=== PATIENT | male | born 1965 | race Caucasian/White ===

== ENCOUNTER 2017-06-07 14:43 | Inpatient (IN) | payer BC ==
--- NOTE | 2017-06-07 15:07 | ER Document Report ---
ED General - General Stated Complaint: RECHECK Time Seen by Provider: 06/07/17 15:01 Mode of Arrival: Ambulatory Information source: Patient Notes: 51-year-old male history of hypertension on lisinopril presents with complaints of low sodium recheck. Patient was noted to have a sodium of 119 this morning. Denies any fevers or chills denies any confusion admits to weakness TRAVEL OUTSIDE OF THE [place] IN LAST 30 DAYS: No - HPI Onset: Just prior to arrival Onset/Duration: Sudden Quality of pain: No pain Severity: Mild Pain Level: Denies Associated symptoms: Weakness Exacerbated by: Denies Relieved by: Denies Similar symptoms previously: Yes Recently seen / treated by doctor: Yes - Related Data Allergies/Adverse Reactions: iodine [Iodine] Allergy (Verified 12/31/12 14:30) Past Medical History - Social History Smoking Status: Never Smoker Cigarette use (# per day): No Chew tobacco use (# tins/day): No Smoking Education Provided: No Frequency of alcohol use: Occasional Family History: Reviewed & Not Pertinent - Past Medical History Cardiac Medical History: Reports: Hx Hypertension Past Surgical History: Reports: Hx Appendectomy Review of Systems - Review of Systems Notes: REVIEW OF SYSTEMS: CONSTITUTIONAL : Denies fever, chills, or sweats. Denies recent illness. EENT: Denies eye, ear, throat, or mouth pain or symptoms. Denies nasal or sinus congestion or discharge. Denies throat, tongue, or mouth swelling or difficulty swallowing. CARDIOVASCULAR: Denies chest pain. Denies palpitations or racing or irregular heart beat. Denies ankle edema. RESPIRATORY: Denies cough, cold, or chest congestion. Denies shortness of breath, difficulty breathing, or wheezing. GASTROINTESTINAL: Denies abdominal pain or distention. Denies nausea, vomiting , or diarrhea. Denies blood in vomitus, stools, or per rectum. Denies black, tarry stools. Denies constipation. GENITOURINARY: Denies difficulty urinating, painful urination, burning, frequency, blood in urine, or discharge. MUSCULOSKELETAL: Denies back or neck pain or stiffness. Denies joint pain or swelling. SKIN: Denies rash, lesions or sores. HEMATOLOGIC : Denies easy bruising or bleeding. LYMPHATIC: Denies swollen, enlarged glands. NEUROLOGICAL: Admits to weakness PSYCHIATRIC: Denies anxiety or stress. Denies depression, suicidal ideation, or homicidal ideation. ALL OTHER SYSTEMS REVIEWED AND NEGATIVE. Dictation was performed using [employer] voice recognition software PHYSICAL EXAMINATION: GENERAL: Well-appearing, well-nourished and in no acute distress. HEAD: Atraumatic, normocephalic. EYES: Pupils equal round and reactive to light, extraocular movements intact, sclera anicteric, conjunctiva are normal. ENT: Nares patent, oropharynx clear without exudates. Moist mucous membranes. NECK: Normal range of motion, supple without lymphadenopathy LUNGS: Breath sounds clear to auscultation bilaterally and equal. No wheezes rales or rhonchi. HEART: Regular rate and rhythm without murmurs ABDOMEN: Soft, nontender, nondistended abdomen. No guarding, no rebound. No masses appreciated. Musculoskeletal: Normal range of motion, no pitting or edema. No cyanosis. NEUROLOGICAL: Cranial nerves grossly intact. Normal speech, normal gait. Normal sensory, motor exams PSYCH: Normal mood, normal affect. SKIN: Warm, Dry, normal turgor, no rashes or lesions noted. Physical Exam - Vital signs Vitals: Temp Pulse Resp BP Pulse Ox 97.8 F 119 H 20 132/87 H 97 06/07/17 15:06 06/07/17 15:06 06/07/17 15:06 06/07/17 15:06 06/07/17 15:06 Course - Re-evaluation Re-evalutation: 06/07/17 15:07 Patient sodium is 119, patient will be given light hydration He will require admission 06/07/17 15:34 hospitalist paged - Vital Signs Vital signs: Temp Pulse Resp BP Pulse Ox 97.8 F 119 H 20 132/87 H 97 06/07/17 15:06 06/07/17 15:06 06/07/17 15:06 06/07/17 15:06 06/07/17 15:06 - Laboratory Result Diagrams: 06/07/17 15:20 06/07/17 15:20 Critical Care Note - Critical Care Note Total time excluding time spent on procedures (mins): 34 Comments: 34 minutes of critical care time spent in direct contact evaluating and reevaluating the patient, treating symptoms, reviewing labs and studies and speaking with family and consultants excluding any procedures Discharge - Discharge Clinical Impression: severe hyponatremia Condition: Stable Disposition: ADMITTED INPATIENT Admitting Provider: Hospitalist Unit Admitted: [facility]
[2017-06-07] MEDS ORDERED: NORMAL SALINE 1000 ML 1,000 ML IV ONE (15:30)
[2017-06-07] MEDS ORDERED: NORMAL SALINE 1000 ML 1,000 ML IV PRN (15:38)
[2017-06-07 15:39] LABS: ABSOLUTE LYMPHOCYTES (AUTO) 0.9 10^3/uL (0.5-4.7); ABSOLUTE NEUT (AUTO) 6.8 10^3/uL (1.7-8.2); BASOPHILS % (AUTO) 0.5 % (0-2); EOSINOPHILS % (AUTO) 0.1 % (0-6); HEMATOCRIT 41.4 % (37.9-51.0); HEMOGLOBIN 14.8 g/dL (13.5-17.0); LYMPHOCYTES % (AUTO) 10.4 % (13-45); MEAN CORPUSCULAR HEMOGLOBIN 31.4 pg (27.0-33.4); MEAN CORPUSCULAR HGB CONC 35.8 g/dL (32.0-36.0); MEAN CORPUSCULAR VOLUME 88 fl (80-97); MONOCYTES % (AUTO) 11.2 % (3-13); RED BLOOD COUNT 4.72 10^6/uL (4.35-5.55); RED CELL DISTRIBUTION WIDTH 12.1 % (11.5-14.0); SEGMENTED NEUTROPHILS % (AUTO) 77.8 % (42-78); WHITE BLOOD COUNT 8.7 10^3/uL (4.0-10.5)
[2017-06-07 16:00] LABS: ALANINE AMINOTRANSFERASE 66 U/L (21-72); ALKALINE PHOSPHATASE 85 U/L (38-126); ANION GAP 19 (5-19); ASPARTATE AMINO TRANSFERASE 77 U/L (17-59); BILIRUBIN,DIRECT 0.5 mg/dL (0.0-0.4); BILIRUBIN,TOTAL 1.2 mg/dL (0.2-1.3); BLOOD UREA NITROGEN 9 mg/dL (7-20); CALCIUM 9.4 mg/dL (8.4-10.2); CARBON DIOXIDE 21 mmol/L (22-30); CHLORIDE 78 mmol/L (98-107); CREATININE RESULT 0.92 mg/dL (0.52-1.25); GLUCOSE 111 mg/dL (75-110); MAGNESIUM 1.5 mg/dL (1.6-2.3); POTASSIUM 4.1 mmol/L (3.6-5.0); TOTAL PROTEIN 8.2 g/dL (6.3-8.2)
[2017-06-07 16:05] LABS: SODIUM 118.1 mmol/L (137-145)
[2017-06-07] MEDS ORDERED: LORAZEPAM INJ 2 MG/1 ML VIAL IV PRN (16:14)
[2017-06-07 16:33] LABS: URINE BARBITURATES SCREEN NEGATIVE; URINE METHADONE SCREEN NEGATIVE; URINE OPIATES LOW NEGATIVE; URINE PHENCYCLIDINE SCREEN NEGATIVE
--- NOTE | 2017-06-07 16:56 | EKG REPORT ---
SEVERITY:- OTHERWISE NORMAL ECG - SINUS TACHYCARDIA : Confirmed by: Alban Saul MD 07-Jun-2017 16:56:15
[2017-06-07] MEDS ORDERED: LORAZEPAM INJ 2 MG/1 ML VIAL IV ONE (17:37)
[2017-06-07] MEDS ORDERED: THIAMINE HCL 100 MG TABLET PO ONE (18:02)
[2017-06-07] MEDS ORDERED: FOLIC ACID 1 MG TABLET PO ONE (18:02)
[2017-06-07] MEDS ORDERED: FOLIC ACID 1 MG TABLET PO SCH (18:15)
--- NOTE | 2017-06-07 18:52 | HISTORY AND PHYSICAL E ---
History and Physical NAME: CINTHIA PETERSEN : 1965 AGE: 51Y ADMITTED: 06/07/2017 ROOM: 315 PRIMARY CARE PROVIDER: Dr. Méndez at a local urgent care. CHIEF COMPLAINT: Abnormal labs. HISTORY OF PRESENT ILLNESS: The patient is a 51-year-old male with a past medical history of hypertension and suspected alcohol dependency. The patient presented to the emergency department after being called by his primary for abnormal labs. According to the patient, a week ago he had a routine physical in which he had standard blood work done and was told his labs "were all normal." The patient went back to his primary care provider's office today with a chief complaint of abdominal pain. The patient had repeat labs and findings were consistent with a sodium of 118 and, therefore, the patient was referred to the emergency department for further evaluation. Upon presentation to the emergency department, the patient still admits to abdominal pain which is intermittent in nature. The patient denies any confusion; however, upon evaluation, the patient seems a little delayed and has had to be explained things numerous times. The patient admits to abdominal pain with distention. He states that his last bowel movement was yesterday. The patient admits to frequent alcohol use and states that over the past several days he has had issues with his and, therefore, he has drunk at least a 12-pack everyday for a number of days. The patient states that he has been taking his medication which is lisinopril/hydrochlorothiazide as well for his blood pressure. On presentation, the patient's serum alcohol was found to be 64. The patient does admit to some jitteriness if he goes without alcohol but denied any history of DTs. PAST MEDICAL HISTORY: Remarkable for: 1. Hypertension. 2. Remote history of tobacco dependency. 3. Chronic obstructive pulmonary disease. PAST SURGICAL HISTORY: Positive for appendectomy. SOCIAL HISTORY: The patient stopped smoking 7 months ago after a 25-year pack history. The patient does admit to daily alcohol use and here lately it has been about a 12-pack a day, prior was about a 6-pack a day. The patient denies any illicit drug use. The patient is currently in the process of getting . The patient is employed at [employer]. His surrogate decision maker is his daughter. FAMILY MEDICAL HISTORY: The patient's mother is of breast cancer. The patient's father is alive with hypertension. The patient does have siblings all of which are healthy. The patient has a daughter who is healthy. REVIEW OF SYSTEMS: CONSTITUTIONAL: The patient denies any fevers or chills, no dizziness, weakness or loss of appetite. INTEGUMENTARY: Denies any diaphoresis, rash, bruising or itching. HEENT: Denies any vision or hearing loss, nasal drainage, sore throat, or headache. CARDIOVASCULAR: Denies any chest pain, edema, or heart palpitations. RESPIRATORY: Denies any shortness of breath, cough, sputum production or hemoptysis. GASTROINTESTINAL: Denies any nausea, vomiting, diarrhea. No hematemesis, constipation, melena, or hematochezia. Does admit to abdominal pain and bloating. GENITOURINARY: Denies any hematuria, pyuria or dysuria. MUSCULOSKELETAL: Denies any acute or chronic joint pain. NEUROLOGIC: No seizures, tremors or loss of consciousness. HEMATOLOGICAL: Denies any michelle bleeding or easy bruising. ENDOCRINE: Denies any recent weight changes. PSYCHIATRIC: Denies suicidal or homicidal ideation. The rest of the review of the other organ systems is negative. PHYSICAL EXAMINATION: GENERAL: On examination, the patient is a well-developed, well-nourished 51-year-old male who is awake and alert. He is oriented to person, place, time and situation. He is a little delayed. He does not appear to be in any acute distress. VITAL SIGNS: Temperature 98.2, pulse 114, respirations 16, blood pressure 156/96, oxygen saturation is 98% on room air. SKIN: Warm and dry, no rashes, not diaphoretic. The patient does have a rutty complexion. HEENT: Pupils are equal, round, and reactive to light and accommodation. Conjunctivae are pink. Sclerae are not icteric. There are no mouth lesions. Tongue is midline. NECK: Supple. No JVD. No palpable lymphadenopathy or thyromegaly. CARDIOVASCULAR: Heart is regular. There is no murmur or rub. CHEST: Clear, symmetrical and unlabored. ABDOMEN: Mildly distended. No area of focal tenderness. Bowel sounds are present. Does have palpable liver. BACK: No CVA tenderness or sacral edema. EXTREMITIES: No clubbing, cyanosis, edema or peripheral signs of embolization. There are +1 pedal pulses are noted bilaterally. PSYCHIATRIC: Odd affect, a little delayed, seems anxious. DIAGNOSTICS: Labs are as follows: Hematology obtained on 06/07/2017: WBC 8.7, hemoglobin 14.8, hematocrit 41.4, platelet count is 262,000. Chemistry obtained on 06/07/2017: Sodium 118, potassium 4.1, chloride 78, carbon dioxide 21, BUN 9, creatinine 0.92, glucose 111, serum osmolality 269, calcium 9.8, magnesium 1.5, bilirubin 1.2, direct bilirubin 0.5, AST 77, ALT 66, alkaline phosphatase 85, total protein 8.2, albumin 5.0. Urinalysis obtained on 06/07/2017: Osmolality is 477, sodium 28. Toxicology obtained on 06/07/2017 is kelley negative. Alcohol is 64. EKG obtained on 06/07/2017 reveals sinus rhythm. IMPRESSION AND PLAN: 1. Hyponatremia. According to the patient, he apparently had normal labs a week ago. A review of osmolality shows a serum sodium of 118 and a serum osmolality of 269, urine sodium of 28 and urine osmolality of 477, consistent with a hypovolemia with low volume in kidneys and inability to conserve sodium. Most likely this is due to the patient being started on hydrochlorothiazide with a dual component of alcohol use in the form of beer. Will gently hydrate the patient and will repeat chemistries in 4 hours and follow. 2. Alcohol dependency. Will give the patient a dose of Ativan now and will schedule doses p.r.n. The patient denies any history of DTs but I am uncertain if he has ever stopped drinking to find out. Will start the patient on folate as well as thiamine and monitor closely. 3. Abdominal pain. The patient does have slight elevation in AST which may be due to alcohol. Will obtain right upper quadrant ultrasound because there also is concern for some possible ascites. We will also add on ammonia level at the next blood draw and will follow. 4. Acute metabolic acidosis. This appears to be mild. Will gently hydrate the patient and follow. 5. Chronic obstructive pulmonary disease. The patient is currently asymptomatic at this time. 6. DVT Prophylaxis. Will start patient on subcutaneous heparin. DISPOSITION: The patient is a FULL CODE. Pending patient's symptomatology and diagnostic findings, will evaluate in the a.m. Will admit the patient to inpatient IMCU, as the patient's expected length of stay will surpass 2 midnights. Time spent on this admission including assessment, plan, physical examination, patient education and family meeting is 50 minutes. DICTATING PHYSICIAN: HUMBERTO DEGROOT NP [id number] PHY#: [id number] ID: [id number] JOB#: [id number] ACCT: [id number] cc:HUMBERTO DEGROOT NP > [facility] HOSPITALAdria
[2017-06-07 19:46] LABS: BLOOD UREA NITROGEN 10 mg/dL (7-20); CALCIUM 9.5 mg/dL (8.4-10.2); CARBON DIOXIDE 23 mmol/L (22-30); CHLORIDE 79 mmol/L (98-107); CREATININE RESULT 0.96 mg/dL (0.52-1.25); GLUCOSE 188 mg/dL (75-110); POTASSIUM 3.8 mmol/L (3.6-5.0)
[2017-06-07 19:48] LABS: ANION GAP 16 (5-19)
[2017-06-07 19:52] LABS: SODIUM 117.5 mmol/L (137-145)
[2017-06-07] MEDS: HEPARIN SOD (PORCINE) 5,000 UNIT/ML 1 ML SYRINGE SUBCUT SCH (21:13)
[2017-06-08 00:22] LABS: ANION GAP 15 (5-19); BLOOD UREA NITROGEN 13 mg/dL (7-20); CALCIUM 9.8 mg/dL (8.4-10.2); CARBON DIOXIDE 23 mmol/L (22-30); CHLORIDE 83 mmol/L (98-107); CREATININE RESULT 0.96 mg/dL (0.52-1.25); GLUCOSE 109 mg/dL (75-110); POTASSIUM 3.7 mmol/L (3.6-5.0)
--- NOTE | 2017-06-08 04:17 | RADIOLOGY REPORT (SQ) ---
EXAM DESCRIPTION: U/S ABDOMEN LIMITED W/O DOP COMPLETED DATE/TIME: 06/08/2017 12:44 am REASON FOR STUDY: ABD pain and distension COMPARISON: 8.04.18 TECHNIQUE: Dynamic and static grayscale images acquired of the abdomen and recorded on PACS. Additio mina selected color Doppler and spectral images recorded. LIMITATIONS: None. FINDINGS: PANCREAS: No masses. Visualized pancreatic duct normal caliber. LIVER: Moderate hepatic steatosis. LIVER VASCULATURE: Normal directional flow of the main portal vein and hepatic veins. GALLBLADDER: No stones. Normal wall thickness. No pericholecystic fluid. ULTRASOUND-DETECTED SANCHES'S SIGN: Negative. INTRAHEPATIC DUCTS AND COMMON DUCT: 0.6- 0.8 cm diameter CBD. Intrahepatic ducts normal caliber. No filling defects. INFERIOR VENA CAVA: Normal flow. AORTA: No aneurysm. RIGHT KIDNEY: Normal size. Normal echogenicity. No solid or suspicious masses. No hydronephrosis. No calcifications. PERITONEAL AND RIGHT PLEURAL SPACE: No ascites or effusions. OTHER: No other significant findings. IMPRESSION: Mild dilation of the common bile duct measures up to 0.8 cm in diameter ; no intrahepati c ductal dilation. Consider laboratory correlation. Moderate hepatic steatosis. TECHNICAL DOCUMENTATION: JOB ID: [id number] [employer]- All Rights Reserved
[2017-06-08 04:22] LABS: ANION GAP 15 (5-19); BLOOD UREA NITROGEN 12 mg/dL (7-20); CALCIUM 9.7 mg/dL (8.4-10.2); CARBON DIOXIDE 24 mmol/L (22-30); CHLORIDE 85 mmol/L (98-107); CREATININE RESULT 0.88 mg/dL (0.52-1.25); GLUCOSE 106 mg/dL (75-110); POTASSIUM 3.7 mmol/L (3.6-5.0); SODIUM 123.8 mmol/L (137-145)
[2017-06-08] MEDS: HEPARIN SOD (PORCINE) 5,000 UNIT/ML 1 ML SYRINGE SUBCUT SCH ×3 (06:47→21:51)
[2017-06-08 08:35] LABS: ANION GAP 15 (5-19); BLOOD UREA NITROGEN 12 mg/dL (7-20); CALCIUM 10.2 mg/dL (8.4-10.2); CARBON DIOXIDE 29 mmol/L (22-30); CHLORIDE 83 mmol/L (98-107); CREATININE RESULT 0.96 mg/dL (0.52-1.25); GLUCOSE 109 mg/dL (75-110); POTASSIUM 4.4 mmol/L (3.6-5.0); SODIUM 126.6 mmol/L (137-145)
[2017-06-08] MEDS ORDERED: LORAZEPAM 0.5 MG TABLET PO ONE (10:00)
[2017-06-08] MEDS ORDERED: THIAMINE HCL 100 MG TABLET PO SCH (10:00)
[2017-06-08] MEDS: VITAMIN E (DL, ACETATE) 400 UNIT CAPSULE PO SCH ×2 (10:21→18:03)
--- NOTE | 2017-06-08 10:50 | PROGRESS NOTE E ---
Progress Note NAME: CINTHIA PETERSEN : 1965 AGE: 51Y DATE: 06/08/2017 ROOM: 315 SUBJECTIVE: The patient is currently sitting on the side of the bed. He is a little anxious, slightly shaky. I discussed in detail findings on ultrasound and the absolute importance of the patient maintaining sobriety. The patient was argumentative, however, did acknowledge that this was probably ideal. The patient denies any nausea, vomiting, diarrhea. No shortness of breath, dizziness, chest pain. No fevers, chills. The patient has been afebrile. His blood pressures have been in a good range, however, the patient has been tachycardic and the patient does not voice any other concerns at this time. REVIEW OF SYSTEMS: Rest of review systems negative. MEDICATIONS: Medications have been reviewed. OBJECTIVE: GENERAL: The patient is a 51-year-old male who is awake, alert, and oriented to person, place, time and situation. He is verbal and conversational; does not appear to be in any acute distress. VITAL SIGNS: As follows: Temperature 98.0, pulse 130, respirations 19, blood pressure 136/97, oxygen saturation is 97% on room air. SKIN: Is warm and dry, no rash, not diaphoretic. HEENT: Pupils equal round, and reactive to light and accommodation. Conjunctivae pink. No JVP. CARDIOVASCULAR: Heart is regular. Tachycardic. No murmur or rub. CHEST: Clear, symmetrical and unlabored. ABDOMEN: Soft, nontender, nondistended. BACK: No CVA tenderness or sacral edema. EXTREMITIES: No clubbing, cyanosis, edema. PSYCHIATRIC: Somewhat anxious. A little argumentative. Some elements of disbelief. DIAGNOSTICS: Lab values are as follows: Hematology obtained on 06/07/2017: WBC 8.7, hemoglobin 14.8, hematocrit 41.4, platelet count is 262,000. Chemistry obtained on 06/08/2017: Sodium 126, potassium is 4.4, chloride is 83, carbon dioxide is 29, BUN 12, creatinine was 0.96, glucose 109, calcium is 10.2. IMPRESSION AND PLAN: 1. HYPONATREMIA; I HAVE A HIGH SUSPICION FOR ACUTE HYPONATREMIA GIVEN THAT THE PATIENT A WEEK AGO APPARENTLY HAD NORMAL LABS WELL WAS STARTED ON HCTZ AND HAS INCREASED HIS BEER CONSUMPTION TO GREATER THAN 12 DRINKS A DAY FOR THE PAST WEEK. The patient has been gently hydrated. This has improved. Have also fluid-restricted and withheld his hydrochlorothiazide. Will continue to correct slowly. 2. ALCOHOLIC FATTY LIVER. Discussed this with the patient and stressed the importance of him abstaining from alcohol. Also, have started the patient on vitamin E. The patient is a little defiant of this. Will follow. 3. ALCOHOL DEPENDENCY. I AM FEARFUL THE PATIENT WILL GO INTO DT's. Will continue thiamine folate as well as Ativan. Will start him on an oral schedule dose now. 4. ABDOMINAL PAIN. THIS HAS COMPLETELY RESOLVED OVERNIGHT. 5. ACUTE METABOLIC ACIDOSIS, RELATIVELY MILD. Have hydrated the patient. 6. CHRONIC OBSTRUCTIVE PULMONARY DISEASE. THE PATIENT IS ASYMPTOMATIC AT THIS TIME. 7. DVT PROPHYLAXIS. Will continue subcu Heparin. DISPOSITION: The patient is a FULL CODE. Pending patient's symptomatology and diagnostic findings, will evaluate in the a.m. TIME SPENT ON THIS FOLLOWUP: Including assessment, plan, physical examination, patient education and a lengthy discussion is 40 minutes. DICTATING PHYSICIAN: HUMBERTO DEGROOT NP [id number] PHY#: [id number] ID: [id number] JOB#: [id number] ACCT: [id number] cc: >
[2017-06-08] MEDS: LORAZEPAM 1 MG TABLET PO SCH ×2 (11:27→18:02)
[2017-06-08] MEDS: NORMAL SALINE 1000 ML 1,000 ML IV PRN ×2 (11:27→19:55)
[2017-06-08 12:56] LABS: ANION GAP 14 (5-19); BLOOD UREA NITROGEN 17 mg/dL (7-20); CARBON DIOXIDE 27 mmol/L (22-30); CHLORIDE 84 mmol/L (98-107); CREATININE RESULT 1.02 mg/dL (0.52-1.25); GLUCOSE 182 mg/dL (75-110); SODIUM 124.8 mmol/L (137-145)
[2017-06-08 16:39] LABS: ANION GAP 13 (5-19); BLOOD UREA NITROGEN 20 mg/dL (7-20); CALCIUM 9.8 mg/dL (8.4-10.2); CARBON DIOXIDE 27 mmol/L (22-30); CHLORIDE 87 mmol/L (98-107); CREATININE RESULT 1.03 mg/dL (0.52-1.25); GLUCOSE 113 mg/dL (75-110); POTASSIUM 4.2 mmol/L (3.6-5.0)
[2017-06-08] MEDS: METOPROLOL TARTRATE 25 MG TABLET PO SCH (19:20)
[2017-06-08 20:17] LABS: ANION GAP 12 (5-19); BLOOD UREA NITROGEN 21 mg/dL (7-20); CALCIUM 9.9 mg/dL (8.4-10.2); CARBON DIOXIDE 28 mmol/L (22-30); CHLORIDE 89 mmol/L (98-107); CREATININE RESULT 1.05 mg/dL (0.52-1.25); GLUCOSE 104 mg/dL (75-110); POTASSIUM 3.8 mmol/L (3.6-5.0); SODIUM 128.8 mmol/L (137-145)
[2017-06-09] MEDS: LORAZEPAM 1 MG TABLET PO SCH ×2 (00:26→06:37)
[2017-06-09 00:52] LABS: ANION GAP 10 (5-19); BLOOD UREA NITROGEN 18 mg/dL (7-20); CALCIUM 9.4 mg/dL (8.4-10.2); CARBON DIOXIDE 28 mmol/L (22-30); CHLORIDE 91 mmol/L (98-107); CREATININE RESULT 0.97 mg/dL (0.52-1.25); GLUCOSE 118 mg/dL (75-110); POTASSIUM 3.8 mmol/L (3.6-5.0); SODIUM 129.4 mmol/L (137-145)
[2017-06-09 04:09] LABS: HEMATOCRIT 41.3 % (37.9-51.0); HEMOGLOBIN 14.5 g/dL (13.5-17.0); HGB HCT DIFFERENCE 2.2; MEAN CORPUSCULAR HEMOGLOBIN 31.4 pg (27.0-33.4); MEAN CORPUSCULAR HGB CONC 35.1 g/dL (32.0-36.0); MEAN CORPUSCULAR VOLUME 89 fl (80-97); RED BLOOD COUNT 4.62 10^6/uL (4.35-5.55); WHITE BLOOD COUNT 5.2 10^3/uL (4.0-10.5)
[2017-06-09 04:39] LABS: ANION GAP 10 (5-19); BLOOD UREA NITROGEN 17 mg/dL (7-20); CALCIUM 9.5 mg/dL (8.4-10.2); CARBON DIOXIDE 26 mmol/L (22-30); CHLORIDE 95 mmol/L (98-107); CREATININE RESULT 0.87 mg/dL (0.52-1.25); GLUCOSE 109 mg/dL (75-110); MAGNESIUM 2.1 mg/dL (1.6-2.3); POTASSIUM 3.9 mmol/L (3.6-5.0); SODIUM 130.7 mmol/L (137-145)
[2017-06-09] MEDS: METOPROLOL TARTRATE 25 MG TABLET PO SCH (06:37)
[2017-06-09] MEDS: HEPARIN SOD (PORCINE) 5,000 UNIT/ML 1 ML SYRINGE SUBCUT SCH (06:37)
[2017-06-09 08:01] VITALS: BP 123/80
--- NOTE | 2017-06-09 08:47 | DISCHARGE SUMMARY E ---
Discharge Summary NAME: CINTHIA PETERSEN : 1965 AGE: 51Y ADMITTED: 06/07/2017 DISCHARGED: 06/09/2017 CODE STATUS: FULL CODE. PRIMARY CARE PROVIDER: Dr. Méndez at a local urgent care. DISCHARGE DIAGNOSES: 1. Hyponatremia. 2. Alcohol dependency. 3. Alcoholic fatty liver disease. 4. Acute metabolic acidosis resolved. 5. Chronic obstructive pulmonary disease. 6. Hypertension. DISCHARGE MEDICATIONS: 1. Lopressor 25 mg p.o. b.i.d., 60 tablets with 0 refills. 2. Folic acid 1 mg p.o. daily, 30 tablets with 0 refills. 3. Thiamine 100 mg p.o. daily, 30 tablets with 0 refills. 4. Vitamin E 400 international units p.o. b.i.d., 60 capsules with 0 refills. DIET: Heart healthy. Abstain from alcohol. ACTIVITY: As tolerated. DIAGNOSTICS: Lab values are as follows: Hematology obtained on 06/09/2017: WBCs are 5.3, hemoglobin is 14.5, hematocrit is 41.3, platelet count is 204,000. Chemistry obtained on 06/09/2017: Sodium is 130.7, potassium is 3.9, chloride is 95, carbon dioxide is 26, BUN 17, creatinine 0.87, glucose 109, serum osmolality is 269, calcium is 9.5, magnesium is 2.1, bilirubin is 1.2, AST 77, ALT is 66, alk phos 85, ammonia is 10.9, total protein is 8.2, albumin is 5.0, B12 is 442. Urinalysis obtained on 06/07/2017: Osmolality is 477, sodium is 28. Toxicology obtained on 06/07/2017: Serum alcohol is 64. EKG obtained on 06/07/2017 reveals sinus tachycardia. Abdominal ultrasound obtained on 06/08/2017 reveals no intrahepatic ductal dilation, moderate hepatic steatosis. HISTORY OF PRESENT ILLNESS: The patient is a 51-year-old male with a past medical history of hypertension and alcohol dependency. The patient presented to the emergency department due to having abnormal labs. The patient had apparently been contacted by his primary care provider regarding abnormal labs. According to the patient, a week ago he had a routine physical in which he had standard blood work and was told his labs were "normal." The patient was started on combination blood pressure pill of lisinopril and hydrochlorothiazide. The patient went back to his primary care provider's office the day of admission due to abdominal pain. The patient had repeat labs and findings were consistent with a sodium of 118 and therefore the patient was referred to the hospital for management. Upon presentation to the emergency department, the patient stated that his abdominal pain was intermittent in nature. The patient denied any confusion, however, upon evaluation the patient was noted to be delayed and was slow to uptake and required explanation numerous times. The patient admitted to some abdominal bloating. The patient stated his last bowel movement was the day before presentation. The patient admits to frequent alcohol use and states for the past several days prior to admission that he had issues with his and therefore he had drunk at least a 12-pack everyday for a number of days. The patient states that he has been taking his new blood pressure medication as prescribed for his blood pressure. On presentation, the patient's serum alcohol level was 64 and the patient admitted to jitteriness if he goes without alcohol but denied any history of DTs. HOSPITAL COURSE: The patient was admitted to [facility]. The patient was on scheduled benzodiazepines due to his jitteriness. The patient's presenting sodium of 118 ever so slowly trended up to now it is 130. The patient was gently hydrated for the past 48 hours. The patient denies any nausea, vomiting, diarrhea. No shortness of breath, dizziness, or chest pain. No fever or chills. Abdominal pain has improved. The patient underwent an ultrasound and findings were suggestive of moderate hepatic steatosis. Gave long discussion with the patient regarding alcoholic fatty liver disease and the importance of abstinence from alcohol. The patient was highly argumentative about this in spite of direct counseling. The patient was provided information by nursing staff as well. The patient declined any form of rehab or support and is adamant for discharge. The patient's medication was discontinued and the patient was started on beta ellis given his underlying anxieties as well for his blood pressure. The patient's heart rate has tolerated this and has not dipped below 80, therefore, we will continue beta ellis in an outpatient setting as well. DISCHARGE PLANNING: The patient is advised to followup with his primary care provider within 1 week for hospital followup. Do recommend repeat labs as well as blood pressure check. DICTATING PHYSICIAN: HUMBERTO DEGROOT NP [id number] PHY#: [id number] ID: [id number] JOB#: [id number] ACCT: [id number] cc:AGNES JONAS M.D., MICHAEL NP >
== END 2017-06-09 09:02 | disposition home or self-care (01) | DRG 641 ==
LOC: ER 14:43 → EH 15:38 → 3W 17:45
PROVIDERS: ADMIT Family Medicine; ATTEND Family Medicine
DX: E87.1 Hypo-osmolality and hyponatremia (principal); K70.0 Alcoholic fatty liver; F10.20 Alcohol dependence, uncomplicated; E87.2 Acidosis; J44.9 Chronic obstructive pulmonary disease, unspecified; F17.200 Nicotine dependence, unspecified, uncomplicated; I10 Essential (primary) hypertension; R10.9 Unspecified abdominal pain; Y90.3 Blood alcohol level of 60-79 mg/100 ml; Z88.8 Allergy status to other drugs, medicaments and biological substances; Z90.49 Acquired absence of other specified parts of digestive tract; Z80.3 Family history of malignant neoplasm of breast; Z82.49 Family history of ischemic heart disease and other diseases of the circulatory system
CPT/HCPCS: 36415; 76705; 80048; 80053; 80307; 82140; 82607; 83735; 83930; 83935; 84300; 85025; 85027; 93005; 93010; 99291; J1644; J2060; J3490; J7030

== ENCOUNTER → 2017-06-07 | Outpatient (CLI) | payer BC ==
[2017-06-07 12:47] LABS: ABSOLUTE BASOPHILS # (AUTO) 0.1 10^3/uL (0.0-0.2); ABSOLUTE EOSINOPHILS # (AUTO) 0.1 10^3/uL (0.0-0.6); ABSOLUTE LYMPHOCYTES (AUTO) 1.3 10^3/uL (0.5-4.7); ABSOLUTE MONOCYTES (AUTO) 1.2 10^3/uL (0.1-1.4); ABSOLUTE NEUT (AUTO) 4.9 10^3/uL (1.7-8.2); EOSINOPHILS % (AUTO) 0.9 % (0-6); HEMATOCRIT 41.6 % (37.9-51.0); HEMOGLOBIN 14.7 g/dL (13.5-17.0); HGB HCT DIFFERENCE 2.5; LYMPHOCYTES % (AUTO) 17.3 % (13-45); MEAN CORPUSCULAR HGB CONC 35.4 g/dL (32.0-36.0); MEAN CORPUSCULAR VOLUME 87 fl (80-97); MONOCYTES % (AUTO) 16.1 % (3-13); RED BLOOD COUNT 4.76 10^6/uL (4.35-5.55); RED CELL DISTRIBUTION WIDTH 12.1 % (11.5-14.0); SEGMENTED NEUTROPHILS % (AUTO) 64.7 % (42-78); WHITE BLOOD COUNT 7.6 10^3/uL (4.0-10.5)
[2017-06-07 12:55] LABS: ALANINE AMINOTRANSFERASE 66 U/L (21-72); ALBUMIN 5.1 g/dL (3.5-5.0); ALKALINE PHOSPHATASE 80 U/L (38-126); ASPARTATE AMINO TRANSFERASE 73 U/L (17-59); BILIRUBIN,DIRECT 0.4 mg/dL (0.0-0.4); BILIRUBIN,TOTAL 1.1 mg/dL (0.2-1.3); BLOOD UREA NITROGEN 9 mg/dL (7-20); CALCIUM 9.4 mg/dL (8.4-10.2); CARBON DIOXIDE 21 mmol/L (22-30); CHLORIDE 79 mmol/L (98-107); CREATININE RESULT 0.92 mg/dL (0.52-1.25); GLUCOSE 113 mg/dL (75-110); POTASSIUM 3.9 mmol/L (3.6-5.0); TOTAL PROTEIN 8.1 g/dL (6.3-8.2)
[2017-06-07 13:04] LABS: ANION GAP 19 (5-19)
--- NOTE | 2017-06-07 14:07 | RADIOLOGY REPORT (SQ) ---
EXAM DESCRIPTION: CT ABD/PELVIS WITH IV ONLY COMPLETED DATE/TIME: 06/07/2017 1:48 pm REASON FOR STUDY: RUQ PAIN COMPARISON: None. TECHNIQUE: CT scan of the abdomen and pelvis performed using helical scanning technique with dynamic intravenous contrast injection. No oral contrast. Images reviewed with lung, soft tissue, and bone windows. Reconstructed coronal and sagittal MPR images reviewed. Delayed images for evaluation of the urinary system also acquired. All images stored on PACS. All CT scanners at this facility use dose modulation, iterative reconstruction, and/or weight based d osing when appropriate to reduce radiation dose to as low as reasonably achievable (ALARA). [facility]: Dose Right [facility]: CareDose [facility]: Dose Right [facility]: Teradose 4D [facility]: [employer] CONTRAST TYPE AND DOSE: contrast/concentration: Isovue 370.00 mg/ml; Total Contrast Delivered: 79.0 ml; Total Saline Delivered: 52.0 ml RENAL FUNCTION: BUN 9 creatinine 0.92. RADIATION DOSE: Up-to-date CT equipment and radiation dose reduction techniques were employed. CTDIv ol: 11.6 - 16.1 mGy. DLP: 1487 mGy-cm.. LIMITATIONS: None. FINDINGS: LOWER CHEST: No significant findings. No nodules or infiltrates. LIVER: Normal size. Mild diffuse fatty infiltration. No masses. No dilated ducts. SPLEEN: Normal size. No focal lesions. PANCREAS: No masses. No significant calcifications. No adjacent inflammation or peripancreatic fluid collections. Pancreatic duct not dilated. GALLBLADDER: No identified stones by CT criteria. No inflammatory changes to suggest cholecystitis. ADRENAL GLANDS: No significant masses or asymmetry. RIGHT KIDNEY AND URETER: No solid masses. No significant calcifications. No hydronephrosis or hyd roureter. LEFT KIDNEY AND URETER: No solid masses. No significant calcifications. No hydronephrosis or hydr oureter. AORTA AND VESSELS: No aneurysm. No dissection. Renal arteries, SMA, celiac without stenosis. RETROPERITONEUM: No retroperitoneal adenopathy, hemorrhage or masses. BOWEL AND PERITONEAL CAVITY: No masses or inflammatory changes. No free fluid or peritoneal masses. APPENDIX: Surgically absent. PELVIS: No mass. No free fluid. Normal bladder. ABDOMINAL WALL: No masses. No hernias. BONES: No significant or acute findings. OTHER: No other significant finding. IMPRESSION: NO SIGNIFICANT OR ACUTE FINDING IN THE ABDOMEN OR PELVIS ON CT SCAN WITH IV CONTRAST. TECHNICAL DOCUMENTATION: JOB ID: [id number] Quality ID # [id number]: Final reports with documentation of one or more dose reduction techniques (e.g., Au tomated exposure control, adjustment of the mA and/or kV according to patient size, use of iterative reconstruction technique) 2010 [employer]- All Rights Reserved
[2017-06-07 14:41] LABS: LIPASE 99.1 U/L (23-300)
== END ==
LOC: RAD 11:55
PROVIDERS: ATTEND Physician Assistant
DX: R10.11 Right upper quadrant pain (principal)
CPT/HCPCS: 36415; 74177; 80053; 82150; 83690; 85025

== ENCOUNTER 2017-12-19 21:10 | Emergency (ER) | payer BC ==
[2017-12-20] MEDS ORDERED: MINERAL OIL 30 ML UDCUP PR ONE ×2 (00:27→01:48)
--- NOTE | 2017-12-20 01:00 | RADIOLOGY REPORT (SQ) ---
EXAM DESCRIPTION: ACUTE ABDOMEN SERIES CLINICAL HISTORY: 52 years, Male, abdominal pain COMPARISON: None. TECHNIQUE: Three views LIMITATIONS: None. FINDINGS: 3.3 cm diameter mild gaseous small bowel distention of the left paracentral abdomen and a few stacked loops of bowel in the right paracentral abdomen, few air-fluid levels. Small sigmoid stool retention. No suspicious calcification. Grossly intact skeletal structures. Minimal left lower lobar atelectasis-scar. IMPRESSION: Mild small bowel ileus pattern; cannot exclude a low-grade obstruction.
--- NOTE | 2017-12-20 01:48 | ER Document Report ---
ED General - General Chief Complaint: Constipation Stated Complaint: RECTAL/ABDOMINAL PAIN Time Seen by Provider: 12/19/17 23:41 Notes: Patient is a pleasant 52-year-old male presents with complaint of having strained pressure and pain going into his rectum from his abdomen and not having a bowel movement in 4 days. He says some nausea but no vomiting. No fevers. He says this never happened before. He does not take opiate pain medications. He did have a colonoscopy a few years ago. He did have some polyps. He has a colonoscopy every 5 years. He has never had cancerous polyps. Never had colon masses. No blood per rectum. No other complaints at this time. He has tried several things at home to have vomiting. He tried magnesium citrate, and enema, Dulcolax tablets. TRAVEL OUTSIDE OF THE [place] IN LAST 30 DAYS: No - Related Data Allergies/Adverse Reactions: iodine [Iodine] Allergy (Verified 12/31/12 14:30) Past Medical History - Social History Smoking Status: Current Every Day Smoker Frequency of alcohol use: Rare Drug Abuse: None Family History: Reviewed & Not Pertinent Patient has suicidal ideation: No Patient has homicidal ideation: No - Past Medical History Cardiac Medical History: Reports: Hx Hypertension Renal/ Medical History: Denies: Hx Peritoneal Dialysis Past Surgical History: Reports: Hx Appendectomy Review of Systems - Review of Systems Notes: My Normal Review Basic REVIEW OF SYSTEMS: CONSTITUTIONAL : Denies fever, chills, or sweats. Denies recent illness. EENT: Denies eye, ear, throat, or mouth pain or symptoms. Denies nasal or sinus congestion. RESPIRATORY: Denies cough, cold, or chest congestion. Denies shortness of breath, difficulty breathing, or wheezing. GASTROINTESTINAL: Normal pain and constipation. GENITOURINARY: Denies difficulty urinating, painful urination, burning, frequency, or blood in urine. NEUROLOGICAL: Denies altered mental status or loss of consciousness. Denies headache. Denies weakness or paralysis or loss of use of either side. Denies problems with gait or speech. Denies sensory or motor loss. ALL OTHER SYSTEMS REVIEWED AND NEGATIVE. Physical Exam - Vital signs Vitals: Temp Pulse Resp BP Pulse Ox 98.2 F 77 16 133/79 H 97 12/19/17 21:37 12/19/17 21:37 12/19/17 21:37 12/19/17 21:37 12/19/17 21:37 - Notes Notes: General Appearance: Well nourished, alert, cooperative, no acute distress, moderate obvious discomfort. Vitals: reviewed, See vital signs table. Eyes: PERRL, EOMI, Conjuctiva clear Mouth: No decreasd moisture Lungs: No wheezing, No rales, No rhonci, No accessory muscle use, good air exchange bilaterally. Heart: Normal rate, Regular rythm, No murmur, no rub Abdomen: Normal BS, soft, No rigidity, No abdominal tenderness, No guarding, no rebound, no abdominal masses, no organomegaly Rectal exam: Large claylike stool ball at the very tip of my index finger on rectal exam. Extremities: strength 5/5 in all extremities, good pulses in all extremities, no swelling or tenderness in the extremities, no edema. Skin: warm, dry, appropriate color, no rash Neuro: speech clear, oriented x 3, normal affect, responds appropriately to questions. Course - Re-evaluation Re-evalutation: 12/20/17 01:47 After enemas patient's has not had any solid bowel movements. Still has dropped further in the rectum. Is now able to reach some of the stool and remove a little bit through digital rectal exam. I was also able to break up large part of the stool ball that is in his rectum. Will do repeat enemas to see if this helps flush out the stool now that it has been broken up some. 12/20/17 02:33 Patient received another enema. He is now had a large bowel movement and feels much improved. Patient's likely has had obstruction from fecal impaction. Now this is resolved patient feels much improved and looks well. Feel he is safe to be discharged home. He has no rectal bleeding no pain now that the stools past. I will place him on Colace and encourage him take Metamucil every day. Encourage him return to ER immediately if he has worsening pain, fevers, bloody stool, or feels unwell. Patient agrees with plan will be discharged home. Dictation of this chart was performed using voice recognition software; therefore, there may be some unintended grammatical errors. - Vital Signs Vital signs: Temp Pulse Resp BP Pulse Ox 98.2 F 90 18 131/90 H 97 12/19/17 21:37 12/20/17 02:47 12/20/17 02:47 12/20/17 02:47 12/20/17 02:47 Discharge - Discharge Clinical Impression: Fecal impaction in rectum Condition: Good Disposition: HOME, SELF-CARE Additional Instructions: Please return to the if you have rectal bleeding, worsening pain, fevers, or feel unwell. Please take Metamucil daily. Please use the colace as well. Please avoid caffeinated liquids. You may need a repeat colonoscopy in the near future if you continue to have repeat rectal blockages. Prescriptions: Docusate Sodium [Colace 100 mg Capsule] 100 mg PO DAILY #30 capsule Forms: Special Work Note Referrals: JERRICA NAVARRO MD [Primary Care Provider] - Follow up in 3-5 days
[2017-12-20 02:55] VITALS: BP 131/90
== END 2017-12-20 02:51 | disposition home or self-care (01) ==
LOC: ER 21:10
DX: K56.41 Fecal impaction (principal); F17.200 Nicotine dependence, unspecified, uncomplicated; I10 Essential (primary) hypertension
CPT/HCPCS: 99283; 74022; J3490

== ENCOUNTER → 2018-05-27 | Outpatient (CLI) | payer BC ==
--- NOTE | 2018-05-27 20:05 | RADIOLOGY REPORT (SQ) ---
EXAM DESCRIPTION: CT ABD/PELVIS WITH IV ORAL COMPLETED DATE/TIME: 05/27/2018 7:27 pm REASON FOR STUDY: R10.32 LEFT LOWER QUADRANT PAIN R10.32 LEFT LOWER QUADRANT PAIN COMPARISON: None. TECHNIQUE: CT scan of the abdomen and pelvis performed using helical scanning technique with dynamic intravenous contrast injection. No oral contrast. Images reviewed with lung, soft tissue, and bone windows. Reconstructed coronal and sagittal MPR images reviewed. Delayed images for evaluation of the urinary system also acquired. All images stored on PACS. All CT scanners at this facility use dose modulation, iterative reconstruction, and/or weight based d osing when appropriate to reduce radiation dose to as low as reasonably achievable (ALARA). [facility]: Dose Right [facility]: CareDose [facility]: Dose Right [facility]: Teradose 4D [facility]: digitalbox CONTRAST TYPE AND DOSE: contrast/concentration: Isovue 370.00 mg/ml; Total Contrast Delivered: 98.0 ml; Total Saline Delivered: 50.0 ml RENAL FUNCTION: GFR > 60. RADIATION DOSE: CT Rad equipment meets quality standard of care and radiation dose reduction techniq ues were employed. CTDIvol: 12.6 - 17.0 mGy. DLP: 1485 mGy-cm.. LIMITATIONS: None. FINDINGS: LOWER CHEST: No significant findings. No nodules or infiltrates. LIVER: Normal size. No masses. No dilated ducts. SPLEEN: Normal size. No focal lesions. PANCREAS: No masses. No significant calcifications. No adjacent inflammation or peripancreatic fluid collections. Pancreatic duct not dilated. GALLBLADDER: No identified stones by CT criteria. No inflammatory changes to suggest cholecystitis. ADRENAL GLANDS: No significant masses or asymmetry. RIGHT KIDNEY AND URETER: No solid masses. No significant calcifications. No hydronephrosis or hyd roureter. LEFT KIDNEY AND URETER: No solid masses. No significant calcifications. No hydronephrosis or hydr oureter. AORTA AND VESSELS: No aneurysm. No dissection. Renal arteries, SMA, celiac without stenosis. RETROPERITONEUM: No retroperitoneal adenopathy, hemorrhage or masses. BOWEL AND PERITONEAL CAVITY: No masses or inflammatory changes. No free fluid or peritoneal masses. APPENDIX: Normal. PELVIS: No mass. No free fluid. Normal bladder. ABDOMINAL WALL: No masses. No hernias. BONES: No acute findings. OTHER: No other significant finding. IMPRESSION: NO ACUTE FINDING IN THE ABDOMEN OR PELVIS ON CT SCAN WITH IV CONTRAST. TECHNICAL DOCUMENTATION: JOB ID: [id number] [id number] Quality ID # [id number]: Final reports with documentation of one or more dose reduction techniques (e.g., Au tomated exposure control, adjustment of the mA and/or kV according to patient size, use of iterative reconstruction technique) 2010 [employer]- All Rights Reserved Reading location - IP/workstation name: [email or web address]
== END ==
LOC: RAD 17:59
PROVIDERS: ATTEND Internal Medicine
DX: R10.32 Left lower quadrant pain (principal)
CPT/HCPCS: 74177; 82565

== ENCOUNTER 2019-03-25 17:17 | Emergency (ER) | payer BC, OTHER ==
[2019-03-25] MEDS ORDERED: FAMOTIDINE INJ/PF 20 MG/2 ML SDV IV ONE (17:35)
[2019-03-25] MEDS ORDERED: EPINEPHRINE INJ/PF 1 MG/1 ML AMPULE SUBCUT ONE (17:36)
[2019-03-25] MEDS ORDERED: LIDOCAINE 2% VISCOUS SOLN 20 ML UDCUP PO ONE (18:57)
[2019-03-25] MEDS ORDERED: METOCLOPRAMIDE HCL ORAL SOLN 10 MG/10 ML UDCUP PO ONE (18:57)
[2019-03-25] MEDS ORDERED: MAG HYDROX/AL HYDROX/SIMETH SUSP 30 ML UDCUP PO ONE (18:57)
--- NOTE | 2019-03-25 19:04 | ER Document Report ---
ED General - General Chief Complaint: Difficulty Swallowing Stated Complaint: THROAT PAIN Time Seen by Provider: 03/25/19 18:20 Primary Care Provider: TAM HERRERA PA-C [Primary Care Provider] - Follow up as needed Notes: Patient is a 53-year-old male with past medical history of essential hypertension who presents with complaints of right hand swelling, itching and throat swelling. Patient states he was driving home from work, began to feel like his right hand was swelling and was extremely itchy. He states after approximately 10 minutes he began to feel his throat was getting tighter and tighter and has becoming increasingly difficult to breathe and swallow. EMS was contacted, administered Benadryl and Solu-Medrol and transported the patient to the emergency department. Upon arrival the patient did receive intramuscular epinephrine here in the emergency department. Patient states that since receiving intramuscular epinephrine he has had dramatic improvement of his symptoms and currently denies any symptoms of any kind other than feel he has a sore throat. Does describe this is a soreness and achiness in his throat worsened by swallowing. Denies any ongoing difficulty swallowing or any ongoing shortness of breath. Denies any history of similar symptoms in the past. No obvious trigger for today's symptoms. TRAVEL OUTSIDE OF THE [place] IN LAST 30 DAYS: No - Related Data Allergies/Adverse Reactions: iodine [Iodine] Allergy (Verified 12/31/12 14:30) Past Medical History - General Information source: Patient - Social History Smoking Status: Never Smoker Frequency of alcohol use: None Drug Abuse: None Lives with: Spouse/Significant other Family History: Reviewed & Not Pertinent - Past Medical History Cardiac Medical History: Reports: Hx Hypertension Renal/ Medical History: Denies: Hx Peritoneal Dialysis Past Surgical History: Reports: Hx Appendectomy Review of Systems - Review of Systems Notes: Constitutional: Negative for fever. HENT: Positive for sore throat. Eyes: Negative for visual changes. Cardiovascular: Negative for chest pain. Respiratory: Positive for shortness of breath now resolved Gastrointestinal: Negative for abdominal pain, vomiting or diarrhea. Genitourinary: Negative for dysuria. Musculoskeletal: Negative for back pain. Skin: Positive for swelling and itching of the right hand now resolved Neurological: Negative for headaches, weakness or numbness. 10 point ROS negative except as marked above and in HPI. Physical Exam - Vital signs Vitals: BP Pulse Ox 169/89 H 95 03/25/19 17:35 05/24/19 17:35 Interpretation: Hypertensive Notes: PHYSICAL EXAMINATION: GENERAL: Well-appearing, well-nourished and in no acute distress. HEAD: Atraumatic, normocephalic. EYES: Pupils equal round and reactive to light, extraocular movements intact, sclera anicteric, conjunctiva are normal. ENT: nares patent, oropharynx clear without exudates. Moist mucous membranes. NECK: Normal range of motion, supple without lymphadenopathy LUNGS: Breath sounds clear to auscultation bilaterally and equal. No wheezes rales or rhonchi. HEART: Regular rate and rhythm without murmurs ABDOMEN: Soft, nontender, normoactive bowel sounds. No guarding, no rebound. No masses appreciated. EXTREMITIES: Normal range of motion, no pitting or edema. No cyanosis. NEUROLOGICAL: No focal neurological deficits. Moves all extremities spontaneously and on command. PSYCH: Normal mood, normal affect. SKIN: Warm, Dry, normal turgor, no rashes or lesions noted. Course - Re-evaluation Re-evalutation: 03/25/19 18:58 Patient presents with right hand swelling and throat tightness that started abruptly consistent with probable anaphylactic reaction given cutaneous and respiratory system involvement. He received Benadryl and Solu-Medrol by EMS which seemed to provide no relief and thankfully upon arrival here to the emergency department at the direction of Dr. Friedman was administered epinephrine 0.3 mg. Patient states within 5 minutes of receiving his medication had complete resolution of his symptoms and now only has some mild soreness of his throat but denies any difficulty swallowing or breathing at this time. Patient has been monitored without any recurrence of symptoms. He has no stridor, wheezing, or vital sign derangements at the time of my assessment. He has been discharged he will be sent home with a epinephrine autoinjector. At this time will discharge with return precautions and follow-up recommendations. Verbal discharge instructions given a the bedside and opportunity for questions given. Medication warnings reviewed. Patient is in agreement with this plan and has verbalized understanding of return precautions and the need for primary care follow-up in the next 24-72 hours. - Vital Signs Vital signs: Temp Pulse Resp BP Pulse Ox 20 153/99 H 96 03/25/19 20:01 03/25/19 20:01 03/25/19 20:01 Discharge - Discharge Clinical Impression: Throat swelling Anaphylactic reaction Qualifiers: Encounter type: initial encounter Qualified Code(s): T78.2XXA - Anaphylactic shock, unspecified, initial encounter Condition: Good Disposition: HOME, SELF-CARE Additional Instructions: IF YOU DEVELOP DIFFICULTY BREATHING, RETURN OF HIVES, VOMITING, LIGHTHEADEDNESS, GIVE YOURSELF THE EPINEPHRINE SHOT IMMEDIATELY AND CALL 911. NEVER HESITATE TO GIVE YOURSELF THE EPINEPHRINE THIS CAN SAVE YOUR LIFE IF YOU ARE HAVE A SERIOUS ALLERGIC REACTION. Please also follow-up with your primary care doctor for consideration of allergy testing. Prescriptions: Epinephrine [Epipen 2-Raffy] 0.3 mg IM ONCE PRN #1 packet PRN Reason: Referrals: TAM HERRERA PA-C [Primary Care Provider] - Follow up as needed
[2019-03-25 20:06] VITALS: BP 153/99
== END 2019-03-25 20:08 | disposition home or self-care (01) ==
LOC: ER 17:17
DX: R22.1 Localized swelling, mass and lump, neck (principal); T78.2XXA Anaphylactic shock, unspecified, initial encounter; X58.XXXA Exposure to other specified factors, initial encounter; I10 Essential (primary) hypertension
CPT/HCPCS: 99283; 96372; 96374; J0171; S0028